=== PATIENT | female | born 1945 | race African-American/Black ===

== ENCOUNTER 2017-07-14 18:33 | Emergency (ER) | payer OTHER ==
[2017-07-14 18:48] VITALS: BP 144/67; PULSE 87; TEMP 98.7; BMI 25.0
[2017-07-14] MEDS ORDERED: KETOROLAC TROMETHAMINE 30 MG/1 ML VIAL IM ONE (19:47)
[2017-07-14] MEDS ORDERED: KETOROLAC TROMETHAMINE 30 MG/1 ML VIAL ONE (19:47)
--- NOTE | 2017-07-14 20:08 | PDOC ---
History of Present Illness - General Chief Complaint: Pain Stated Complaint: HEAD/NECK PROBLEM Time Seen by Provider: 07/14/17 18:51 Past History - Travel Traveled outside of the country in the last 30 days: No Close contact w/someone who was outside of country & ill: No - Past Medical History Allergies/Adverse Reactions: Allergies Allergy/AdvReac Type Severity Reaction Status Date / Time No Known Allergies Allergy Verified 07/14/17 18:44 Home Medications: Ambulatory Orders Celecoxib [Celebrex] 200 mg PO BID 01/19/12 Amlodipine Besylate 5 mg PO ASDIR 07/14/17 Cyclobenzaprine HCl [Flexeril -] 10 mg PO HS #10 tablet 07/14/17 Simvastatin 20 mg PO ASDIR 07/14/17 Tramadol HCl 50 mg PO ASDIR 07/14/17 Triamterene/Hydrochlorothiazid [Triamterene-Hctz 50-25 mg Cap] 1 each PO ASDIR 07/14/17 COPD: No HTN: Yes Hypercholesterolemia: Yes - Surgical History Neurologic Surgery: Yes (cervical and lumbar laminectomies) - Suicide/Smoking/Psychosocial Hx Smoking Status: No Smoking History: Never smoked Have you smoked in the past 12 months: No Number of Cigarettes Smoked Daily: 0 Information on smoking cessation initiated: No Hx Alcohol Use: No Drug/Substance Use Hx: No Substance Use Type: None Review of Systems - Review of Systems Able to Perform ROS?: Yes Is the patient limited [place] proficient: No *Physical Exam - Vital Signs Last Vital Signs Temp Pulse Resp BP Pulse Ox 98.7 F 87 20 144/67 97 07/14/17 18:45 07/14/17 18:45 07/14/17 18:45 07/14/17 18:45 07/14/17 18:45 *DC/Admit/Observation/Transfer Diagnosis at time of Disposition: Whiplash Qualifiers: Encounter type: initial encounter Qualified Code(s): S13.4XXA - Sprain of ligaments of cervical spine, initial encounter Knee pain Qualifiers: Chronicity: acute Laterality: left Qualified Code(s): M25.562 - Pain in left knee - Discharge Dispostion Disposition: HOME Condition at time of disposition: Stable Admit: No - Referrals Referrals: Sanjuana Mcintyre MD [Primary Care Provider] - - Patient Instructions Printed Discharge Instructions: DI for Whiplash Additional Instructions: You have a muscle spasm of her neck and back. Please take your tramadol as prescribed by your doctor. You may take the Flexeril at night before bed. Do not drive after taking this medication as it may make you sleepy. Please use warm compresses to the area. You may ice the knee to help reduce the swelling. Then in 1 day switch to heat. Please follow up with orthopedics in 3-5 days if you're symptoms are not improving. Referral has been provided 40. Return to emergency department if you have worsening pain, increased difficulty walking, fevers, chills, bladder or bowel incontinence, numbness in the groin region, or if you have any changes in your symptoms. - Post Discharge Activity
== END 2017-07-14 21:41 | disposition home or self-care (01) ==
LOC: JERFT 18:33
PROC: 3E0233Z Introduction of Anti-inflammatory into Muscle, Percutaneous Approach (ICD-10-PCS; principal; 2017-07-14)
DX: S13.4XXA Sprain of ligaments of cervical spine, initial encounter (principal); V89.2XXA Person injured in unspecified motor-vehicle accident, traffic, initial encounter; Y92.488 Other paved roadways as the place of occurrence of the external cause; Y93.89 Activity, other specified; Y99.8 Other external cause status; I10 Essential (primary) hypertension; E78.00 Pure hypercholesterolemia, unspecified
CPT/HCPCS: 72050-TC-FY; 72070-TC-FY; 73562-TC-LT-FY; 99281-25